=== PATIENT | male | born 1990 | race African-American/Black ===

== ENCOUNTER 2019-10-29 10:18 | Emergency (ER) | payer SELFPAY ==
[~2019-10-29] VITALS: Ht 180.3 cm; Wt 47.7 kg
[2019-10-29 11:13] LABS: BASO # 0.1 (0.0-0.2); BASO % 0.8 % (0.0-2.0); EOS # 0.1 (0.0-0.7); EOS % 1.3 % (0-4.0); GRAN # 3.6 (1.4-6.5); GRAN % 58.1 % (42.2-75.2); HEMATOCRIT 42.6 % (42.0-52.0); HEMOGLOBIN 14.3 g/dl (13.5-18.0); LYMPH # 1.5 (1.2-3.4); MEAN CELL VOLUME 98 fl (80.0-100.0); MEAN CORPUSCULAR HEMOGLOBIN 33 pg (27.0-31.0); MEAN CORPUSCULAR HGB CONC 34 g/dl (33.0-37.0); MEAN PLATELET VOLUME 9.4 fl (7.4-10.4); MONO % 15.5 % (1.7-9.3); PLATELET COUNT 282 K/mm3 (130-400); RED BLOOD COUNT 4.33 M/mm3 (4.20-5.60); REDCELL DISTRIBUTION WIDTH-CV 14.2 % (11.5-14.5)
[2019-10-29 11:21] LABS: BILIRUBIN,TOTAL 0.5 mg/dL (0.0-1.0); CALCIUM 9.2 mg/dL (8.4-10.2); CREATININE, serum 0.84 (0.66-1.25); POTASSIUM 4.2 mmol/L (3.4-5.0); TOTAL PROTEIN 8.8 gm/dL (6.4-8.2)
[2019-10-29 12:20] VITALS: BP 117/69; PULSE 95; TEMP 98.8
== END 2019-10-29 12:20 | disposition home or self-care (01) ==
LOC: COL.ER 10:18
PROVIDERS: Physician Assistant
DX: I88.9 Nonspecific lymphadenitis, unspecified (principal); F17.210 Nicotine dependence, cigarettes, uncomplicated
CPT/HCPCS: J7030; Q9967